=== PATIENT | female | born 1960 | race Caucasian/White ===

== ENCOUNTER 2020-05-14 15:38 | Emergency (ER) | payer BC ==
[~2020-05-14] VITALS: Ht 152 cm; Wt 96.0 kg
[2020-05-14 16:04] LABS: BASOPHILS # (AUTO) 0.1 10^3/uL (0.0-0.1); BASOPHILS % (AUTO) 0 % (0-10); EOSINOPHILS # (AUTO) 0.2 10^3/uL (0.0-0.3); EOSINOPHILS % (AUTO) 1 % (0-10); HEMATOCRIT 43 % (35-52); HEMOGLOBIN 13.9 G/DL (11.5-16.0); LYMPHOCYTES # (AUTO) 2.1 X 10^3 (1.0-4.0); LYMPHOCYTES % (AUTO) 11 % (12-44); MEAN CORPUSCULAR HEMOGLOBIN 26 PG (25-34); MEAN CORPUSCULAR HGB CONC 32 G/DL (32-36); MEAN CORPUSCULAR VOLUME 82 FL (80-99); MONOCYTES # (AUTO) 1.4 X 10^3 (0.0-1.0); MONOCYTES % (AUTO) 7 % (0-12); NEUTROPHILS # (AUTO) 15.3 X 10^3 (1.8-7.8); NEUTROPHILS % (AUTO) 80 % (42-75); PLATELET COUNT 198 10^3/uL (130-400)
[2020-05-14] MEDS ORDERED: NS IV 1000 ML 1,000 ML IV STA (16:16)
--- NOTE | 2020-05-14 16:16 | ED GI ---
General Chief Complaint: Abdominal/GI Problems Stated Complaint: DIARRHEA,BLOODY STOOLS,NAUSEA Nursing Triage Note: BLOOD IN STOOL. PT REPORTS DIARRHEA ON FRIDAY, BLOODY STOOLS FRIDAY AND MIXED BLOOD AND STOOL TODAY. PT REPORTS LOWER ABDOMINAL PAIN. PT IS ON PLAVIX. Sepsis Screen: No Definite Risk Source of Information: Patient History of Present Illness Date Seen by Provider: May 14, 2020 Time Seen by Provider: 15:40 Initial Comments 59-year-old female presenting with complaints of bloody diarrhea stools since Friday. She has had left-sided and lower abdominal pain as well. She denies any fever or chills. She has had some nausea but no vomiting. She denies any pain with urination. She does take Plavix due to having 5 stents in her heart. She had her last stent placed almost a year ago. She denies having any symptoms like this before. She states that she had a colonoscopy last April and was told that everything was clear. She denies any history of diverticulosis or div erticulitis. Severity/Quality: Mild, Aching, Cramping Location: RLQ, LLQ, Flank (left flank) Activities at Onset: None Associated Symptoms: No Back Pain, No Chest Pain, No Diaphoresis, No Fever/Chills; Fatigue; No Headache, No Heartburn; Nausea/Vomiting (nausea but no vomiting); No Rash, No Shortness of Air, No Swelling/Mass in Abdomen, No Syncope, No Weakness Allergies and Home Medications Allergies Coded Allergies: No Known Drug Allergies (Unverified , 05/14/20) Home Medications Azithromycin 500 Mg Tablet, 500 MG PO DAILY Prescribed by: TERRELL IBARRA on 05/14/20 4449 Patient Home Medication List Home Medication List Reviewed: Yes Review of Systems Review of Systems Constitutional: No chills, No fever EENTM: No Symptoms Reported Respiratory: No Symptoms Reported Cardiovascular: No Symptoms Reported Gastrointestinal: See HPI Genitourinary: No Symptoms Reported Musculoskeletal: no symptoms reported Skin: no symptoms reported Psychiatric/Neurological: No Symptoms Reported Endocrine: No Symptoms Reported Hematologic/Lymphatic: Easy Bleeding (taking plavix), Easy Bruising (taking plavix) Past Jlsrkjm-Ougkkk-Eczyrx Hx Past Med/Social Hx: Reviewed Nursing Past Med/Soc Hx Patient Social History Alcohol Use: Denies Use Smoking Status: Never a Smoker Recent Infectious Disease Expo: No Recent Hopitalizations: No Seasonal Allergies Seasonal Allergies: No Past Medical History Surgeries: Yes (HIATAL HERNIA REPAIR) Coronary Stent Respiratory: No Cardiac: Yes Coronary Artery Disease, High Cholesterol, Hypertension Neurological: No Genitourinary: No Gastrointestinal: Yes (GASTROPARESIS) Hiatal Hernia Musculoskeletal: Yes Arthritis Endocrine: Yes Diabetes, Non-Insulin dep HEENT: No Cancer: No Psychosocial: Yes Sleep Difficulties, Anxiety, Depression Integumentary: No Blood Disorders: No Physical Exam Vital Signs Vital Signs - First Documented 05/14/20 16:07 Temp 36.9 Pulse 103 Resp 20 B/P (MAP) 134/77 (96) Pulse Ox 97 O2 Delivery Room Air Capillary Refill : Less Than 3 Seconds Height/Weight/BMI Height: '" Weight: lbs. oz. kg; 41.00 BMI Method: General Appearance: WD/WN, no apparent distress HEENT: PERRL/EOMI Neck: non-tender, full range of motion Respiratory: chest non-tender, lungs clear, normal breath sounds, no respiratory distress, no accessory muscle use Cardiovascular: normal peripheral pulses, tachycardia Gastrointestinal: soft, no pulsatile mass, abnormal bowel sounds (hypoactive), tenderness (tender to palpation along left flank, LLQ, RLQ) Rectal: heme positive stool; No hemorrhoids, No mass Extremities: normal range of motion, normal capillary refill Neurologic/Psychiatric: alert, oriented x 3 Skin: normal color, warm/dry Images 1 - tender to palpation along left side of abdomen 2 - tender to palpation along lower abdomen Progress/Results/Core Measures Results/Orders Lab Results Laboratory Tests Test 05/14/20 15:53 05/14/20 16:30 Range/Units White Blood Count 19.0 H 4.3-11.0 10^3/uL Red Blood Count 5.29 4.35-5.85 10^6/uL Hemoglobin 13.9 11.5-16.0 G/DL Hematocrit 43 35-52 % Mean Corpuscular Volume 82 80-99 FL Mean Corpuscular Hemoglobin 26 25-34 PG Mean Corpuscular Hemoglobin Concent 32 32-36 G/DL Red Cell Distribution Width 14.8 H 10.0-14.5 % Platelet Count 198 130-400 10^3/uL Mean Platelet Volume 11.0 H 7.4-10.4 FL Immature Granulocyte % (Auto) 1 % Neutrophils (%) (Auto) 80 H 42-75 % Lymphocytes (%) (Auto) 11 L 12-44 % Monocytes (%) (Auto) 7 0-12 % Eosinophils (%) (Auto) 1 0-10 % Basophils (%) (Auto) 0 0-10 % Neutrophils # (Auto) 15.3 H 1.8-7.8 X 10^3 Lymphocytes # (Auto) 2.1 1.0-4.0 X 10^3 Monocytes # (Auto) 1.4 H 0.0-1.0 X 10^3 Eosinophils # (Auto) 0.2 0.0-0.3 10^3/uL Basophils # (Auto) 0.1 0.0-0.1 10^3/uL Immature Granulocyte # (Auto) 0.1 0.0-0.1 10^3/uL Neutrophils % (Manual) 83 % Lymphocytes % (Manual) 12 % Monocytes % (Manual) 3 % Eosinophils % (Manual) 1 % Band Neutrophils 1 % Toxic Granulation 4+ Prothrombin Time 12.9 12.2-14.7 SEC INR Comment 1.0 0.8-1.4 Activated Partial Thromboplast Time < 20 L 24-35 SEC Sodium Level 136 135-145 MMOL/L Potassium Level 4.5 3.6-5.0 MMOL/L Chloride Level 98 98-107 MMOL/L Carbon Dioxide Level 20 L 21-32 MMOL/L Anion Gap 18 H 5-14 MMOL/L Blood Urea Nitrogen 14 7-18 MG/DL Creatinine 0.77 0.60-1.30 MG/DL Estimat Glomerular Filtration Rate > 60 BUN/Creatinine Ratio 18 Glucose Level 147 H 70-105 MG/DL Calcium Level 8.9 8.5-10.1 MG/DL Corrected Calcium 8.6 8.5-10.1 MG/DL Total Bilirubin 0.5 0.1-1.0 MG/DL Aspartate Amino Transf (AST/SGOT) 13 5-34 U/L Alanine Aminotransferase (ALT/SGPT) 17 0-55 U/L Alkaline Phosphatase 83 40-136 U/L Total Protein 7.5 6.4-8.2 GM/DL Albumin 4.4 3.2-4.5 GM/DL Lipase 14 8-78 U/L Urine Color YELLOW Urine Clarity SLIGHLTLY CLOUDY Urine pH 6.0 5-9 Urine Specific [place] >=1.030 1.016-1.022 Urine Protein NEGATIVE NEGATIVE Urine Glucose (UA) 2+ H NEGATIVE Urine Ketones 3+ H NEGATIVE Urine Nitrite NEGATIVE NEGATIVE Urine Bilirubin 1+ H NEGATIVE Urine Urobilinogen 0.2 < = 1.0 MG/DL Urine Leukocyte Esterase NEGATIVE NEGATIVE Urine RBC (Auto) TRACE-I NEGATIVE Urine RBC 5-10 H /HPF Urine WBC 5-10 H /HPF Urine Squamous Epithelial Cells 10-25 H /HPF Urine Crystals NONE /LPF Urine Bacteria FEW H /HPF Urine Casts NONE /LPF Urine Mucus MODERATE H /LPF Urine Yeast FEW H /HPF Urine Culture Indicated YES My Orders Orders - TERRELL IBARRA MD Comprehensive Metabolic Panel (05/14/20 15:54) Lipase (05/14/20 15:54) Ua Culture If Indicated (05/14/20 15:54) Ed Iv/Invasive Line Start (05/14/20 15:54) Cbc With Automated Diff (05/14/20 15:54) Ct Abdomen/Pelvis W (05/14/20 15:54) Protime With Inr (05/14/20 15:54) Partial Thromboplastin Time (05/14/20 15:54) Manual Differential (05/14/20 15:53) Ns Iv 1000 Ml (Sodium Chloride 0.9%) (05/14/20 16:16) Fecal Occult Bedside (05/14/20 16:16) Iohexol Injection (Omnipaque 350 Mg/Ml 1 (05/14/20 16:30) Received Contrast (Hold Metformin- Contr (05/14/20 16:30) Sodium Chloride Flush (Catheter Flush Sy (05/14/20 16:30) Ns (Ivpb) (Sodium Chloride 0.9% Ivpb Bag (05/14/20 16:30) Urine Culture (05/14/20 16:30) Rx-Ondansetron Po (Rx-Zofran Po) (05/14/20 18:00) Azithromycin Tablet (Zithromax Tablet) (05/14/20 17:52) Medications Given in ED Current Medications Medications Dose Ordered Sig/Yohana Route Start Time Stop Time Status Last Admin Dose Admin Iohexol 100 ml ONCE ONCE IV 05/14/20 16:30 05/14/20 16:31 DC 05/14/20 16:51 100 ML Sodium Chloride 10 ml NEEDED PRN IV 05/14/20 16:30 05/14/20 18:02 DC 05/14/20 16:51 10 ML Sodium Chloride 100 ml ONCE ONCE IV 05/14/20 16:30 05/14/20 16:31 DC 05/14/20 16:51 100 ML Vital Signs/I&O 05/14/20 05/14/20 16:07 18:00 Temp 36.9 36.9 Pulse 103 88 Resp 20 16 B/P (MAP) 134/77 (96) 128/82 Pulse Ox 97 98 O2 Delivery Room Air Room Air Blood Pressure Mean: 96 Progress Progress Note #1: Progress Note obtain basic labs, CT scan of abdomen/pelvis with IV contrast to evaluate for colitis, diverticulitis, colon mass, pelvic mass. Give IVF for hydration. Pt declines pain or nausea medicine. Progress Note #2: Progress Note labs show elevated WBC count, chemistry stable without acute significant abnormality. UA shows ketones and glucose with elevated specific gravity for dehydration. CT scan shows colitis without abscess or fluid collection in the abdomen/pelvis. Counseled pt on results and from review of online medical reference [employer] will treat pt with Azithromycin here and 3 day course as outpt for possible bacterial source. Counseled to hold Plavix for next 5 to 7 days and check with clinic. May need repeat Colonoscopy although she reports last one was a year ago. Send with 4 Zofran with a take home pack from here. Counseled on follow up and return precautions. Diagnostic Imaging Diagonstic Imaging: CT Plain Films/CT/US/NM/MRI: abdomen, pelvis Comments NAME: LOIDA THOMPSON [facility] REC#: [id number] PT STATUS: REG ER : 1960 PHYSICIAN: TERRELL IBARRA MD ADMIT DATE: 05/14/20/ER FS Draft Date of Exam:05/14/20 CT ABDOMEN/PELVIS W INDICATION: Diarrhea with bloody stools and low abdominal pain x 2 days. Prior history of cholecystectomy and hiatal hernia repair. Appendectomy. EXAMINATION: CT abdomen and pelvis with contrast, 05/14/2020. All CT scans use one or more of the following dose optimizing techniques: automated exposure control, MA and/or KvP adjustment based on patient size and exam type or iterative reconstruction. FINDINGS: The lung bases are clear. There is diffuse fatty infiltration throughout the liver. There are changes of cholecystectomy. The spleen and pancreas are unremarkable. Adrenal glands unremarkable. Kidneys unremarkable. There is diffuse fat stranding along the entire course of the descending colon also involving the sigmoid with diffuse overall wall thickening also present. Findings most consistent with colitis. No free air or significant free fluid appreciated. The osseous structures appear intact. IMPRESSION: Findings of diffuse colitis throughout the left colon. Otherwise incidental findings as above. Dictated on workstation # [id number] Dict: 05/14/20 165 Trans: 05/14/201707 E [id number] Interpreted by: CINDI DIEGO MD Electronically signed by: Departure Impression Primary Impression: Colitis Additional Impressions: Bloody diarrhea Dehydration Disposition: HOME, SELF-CARE Condition: Stable Departure-Patient Inst. Decision time for Depature: 17:53 Referrals: [facility] (PCP) Primary Care Physician BOBO TATE APRN (Family) Primary Care Physician Patient Instructions: Bloody Stools, Adult ED, Dehydration, Adult ED, Colitis (DC) Add. Discharge Instructions: Stay well hydrated and drink plenty of water. Hold your Plavix for the next 5-7 days to let your bloody stools clear up. Take the antibiotics over the next 3 days to treat for colitis. Use the nausea medicine if needed for helping you stay well hydrated Check with clinic or return if having worsening symptoms such as fever over 101 F, worsening pain, increasing blood in your stools All discharge instructions reviewed with patient and/or family. Voiced understanding. Scripts Azithromycin (Azithromycin) 500 Mg Tablet 500 MG PO DAILY for colitis for 3 Days, #3 TAB 0 Refills Prov: TERRELL IBARRA MD 05/14/20 TERRELL IBARRA MD May 14, 2020 16:16
[2020-05-14 16:19] LABS: ALANINE AMINOTRANSFERASE 17 U/L (0-55); ALBUMIN 4.4 GM/DL (3.2-4.5); ALKALINE PHOSPHATASE 83 U/L (40-136); BILIRUBIN,TOTAL 0.5 MG/DL (0.1-1.0); BUN/CREATININE RATIO 18; CALCIUM 8.9 MG/DL (8.5-10.1); CARBON DIOXIDE 20 MMOL/L (21-32); CHLORIDE 98 MMOL/L (98-107); CREATININE SERUM 0.77 MG/DL (0.60-1.30); GFR ESTIMATED > 60; GLUCOSE 147 MG/DL (70-105); LIPASE 14 U/L (8-78); POTASSIUM 4.5 MMOL/L (3.6-5.0); SODIUM 136 MMOL/L (135-145); TOTAL PROTEIN 7.5 GM/DL (6.4-8.2)
[2020-05-14] MEDS ORDERED: IOHEXOL 350 MG/ML 100 ML (OMNIPAQUE 350) VIAL IV ONE (16:30)
[2020-05-14] MEDS ORDERED: CATHETER FLUSH 10 ML SYR IV PRN (16:30)
[2020-05-14] MEDS ORDERED: NS 100 ML (IVPB) BAG IV ONE (16:30)
[2020-05-14] MEDS ORDERED: HOLD METFORMIN - RECEIVED CONTRAST 20 ML VIAL IV SCH (16:30)
[2020-05-14 16:48] LABS: PROTHROMBIN TIME PATIENT 12.9 SEC (12.2-14.7)
[2020-05-14 16:49] LABS: PARTIAL THROMBOPLASTIN TIME < 20 SEC (24-35)
[2020-05-14 16:50] LABS: CLARITY,URINE SLIGHLTLY CLOUDY; COLOR,URINE YELLOW; GLUCOSE, URINE (UA) 2+ (NEGATIVE); PROTEIN,URINE NEGATIVE (NEGATIVE)
[2020-05-14 16:51] LABS: BACTERIA,URINE FEW /HPF; BILIRUBIN,URINE 1+ (NEGATIVE); KETONES,URINE 3+ (NEGATIVE); LEUKOCYTE ESTERASE ,URINE NEGATIVE (NEGATIVE); NITRITE,URINE NEGATIVE (NEGATIVE); YEAST,URINE FEW /HPF
--- NOTE | 2020-05-14 17:08 | Diagnostic Imaging Report ---
INDICATION: Diarrhea with bloody stools and low abdominal pain x 2 days. Prior history of cholecystectomy and hiatal hernia repair. Appendectomy. EXAMINATION: CT abdomen and pelvis with contrast, 05/14/2020. All CT scans use one or more of the following dose optimizing techniques: automated exposure control, MA and/or KvP adjustment based on patient size and exam type or iterative reconstruction. FINDINGS: The lung bases are clear. There is diffuse fatty infiltration throughout the liver. There are changes of cholecystectomy. The spleen and pancreas are unremarkable. Adrenal glands unremarkable. Kidneys unremarkable. There is diffuse fat stranding along the entire course of the descending colon also involving the sigmoid with diffuse overall wall thickening also present. Findings most consistent with colitis. No free air or significant free fluid appreciated. The osseous structures appear intact. IMPRESSION: Findings of diffuse colitis throughout the left colon. Otherwise incidental findings as above. Dictated by: Dictated on workstation # [id number]
[2020-05-14 17:16] LABS: BAND NEUTROPHILS 1 %; EOSINOPHILS % (MANUAL) 1 %; LYMPHOCYTES % (MANUAL) 12 %; MONOCYTES % (MANUAL) 3 %; NEUTROPHILS % (MANUAL) 83 %; TOXIC GRANULATION/VACUOLAZATIO 4+
[2020-05-14] MEDS ORDERED: AZITHROMYCIN 250 MG TAB (ZITHROMAX) PO STA (17:52)
[2020-05-14] MEDS ORDERED: AZIT500T9 PO (17:56)
[2020-05-14 18:00] VITALS: BP 128/82
[2020-05-14] MEDS ORDERED: RX-ONDANSETRON 4 MG ODT (ZOFRAN) PPK #4 PO PRN (18:00)
== END 2020-05-14 18:01 | disposition home or self-care (01) ==
LOC: EDUNIT# 15:38 → ER FS 15:42
DX: K52.9 Noninfective gastroenteritis and colitis, unspecified (principal); E86.0 Dehydration; I10 Essential (primary) hypertension; E11.9 Type 2 diabetes mellitus without complications; Z95.5 Presence of coronary angioplasty implant and graft
CPT/HCPCS: 36415; 74177; 80053; 81000; 82274; 83690; 85007; 85027; 85610; 85730; 87088

== ENCOUNTER → 2020-05-16 | Outpatient (CLI) | payer BC ==
[~2020-05-16] MED LIST: AZIT500T9 PO
--- NOTE | 2020-05-16 10:01 | Diagnostic Imaging Report ---
Indication: Left foot pain AP, oblique, and lateral views left foot are obtained No fracture or acute bony abnormality seen. There is prominent plantar and posterior calcaneal spurring. There is mild diffuse degenerative change throughout the tarsal bones. IMPRESSION: Chronic findings with no acute abnormality left foot. Dictated by: Dictated on workstation # [id number]
--- NOTE | 2020-05-16 10:01 | Diagnostic Imaging Report ---
Indication: Left knee pain AP, oblique, and lateral views left knee are obtained. No fracture or acute bony abnormality seen. Joint spaces are unremarkable. There is no overt joint effusion. IMPRESSION: Negative left knee. Dictated by: Dictated on workstation # [id number]
== END ==
LOC: RAD FS 08:57
PROVIDERS: ATTEND Nurse Practitioner
DX: M25.562 Pain in left knee (principal); M79.672 Pain in left foot
CPT/HCPCS: 73562; 73630

== ENCOUNTER 2020-08-02 12:25 | Emergency (ER) | payer BC, OTHER ==
[~2020-08-02] VITALS: Ht 152.4 cm; Wt 95.3 kg
[2020-08-02 13:10] LABS: EOSINOPHILS % (AUTO) 1 % (0-10); HEMATOCRIT 45 % (35-52); HEMOGLOBIN 14.4 G/DL (11.5-16.0); LYMPHOCYTES % (AUTO) 19 % (12-44); MEAN CORPUSCULAR HEMOGLOBIN 27 PG (25-34); MEAN CORPUSCULAR HGB CONC 32 G/DL (32-36); MEAN CORPUSCULAR VOLUME 82 FL (80-99); MEAN PLATELET VOLUME 10.3 FL (7.4-10.4); MONOCYTES % (AUTO) 7 % (0-12); NEUTROPHILS % (AUTO) 73 % (42-75); PLATELET COUNT 149 10^3/uL (130-400); WHITE BLOOD COUNT 9.4 10^3/uL (4.3-11.0)
[2020-08-02 13:11] LABS: BASOPHILS % (AUTO) 0 % (0-10); EOSINOPHILS # (AUTO) 0.1 10^3/uL (0.0-0.3); LYMPHOCYTES # (AUTO) 1.7 X 10^3 (1.0-4.0); MONOCYTES # (AUTO) 0.6 X 10^3 (0.0-1.0); NEUTROPHILS # (AUTO) 6.8 X 10^3 (1.8-7.8)
--- NOTE | 2020-08-02 13:13 | Diagnostic Imaging Report ---
INDICATION: Chest pain. Portable chest at 12:57 p.m. Heart size and pulmonary vascularity are normal. Lungs are clear. There are no effusions or pneumothoraces. IMPRESSION: Negative chest. Dictated by: Dictated on workstation # [id number]
[2020-08-02] MEDS ORDERED: ACETAMINOPHEN 500 MG TAB (TYLENOL) PO STA (13:20)
[2020-08-02] MEDS ORDERED: FAMOTIDINE 20MG/2ML IV (PEPCID) IV STA (13:20)
[2020-08-02 13:23] LABS: ALANINE AMINOTRANSFERASE 34 U/L (0-55); ALBUMIN 4.4 GM/DL (3.2-4.5); ALKALINE PHOSPHATASE 95 U/L (40-136); BILIRUBIN,TOTAL 0.3 MG/DL (0.1-1.0); BUN/CREATININE RATIO 29; CALCIUM 8.6 MG/DL (8.5-10.1); CARBON DIOXIDE 15 MMOL/L (21-32); CHLORIDE 98 MMOL/L (98-107); CREATININE SERUM 0.62 MG/DL (0.60-1.30); GFR ESTIMATED > 60; GLUCOSE 176 MG/DL (70-105); POTASSIUM 3.9 MMOL/L (3.6-5.0); SODIUM 134 MMOL/L (135-145); TOTAL PROTEIN 7.2 GM/DL (6.4-8.2)
[2020-08-02] MEDS ORDERED: ONDANSETRON 4 MG/2 ML (SDV) Z0FRAN IVP ONE (13:30)
[2020-08-02] MEDS ORDERED: NS IV 1000 ML 1,000 ML IV ONE (13:30)
[2020-08-02 13:44] LABS: PROTHROMBIN TIME PATIENT 13.3 SEC (12.2-14.7)
--- NOTE | 2020-08-02 13:48 | ED Chest Pain ---
General Chief Complaint: Chest Pain Stated Complaint: NAUSEA; COUGH; CHEST PAIN Nursing Triage Note: PT ARRIVED BY PRIVATE VEHICLE FROM WALK IN [facility] ([facility]) WITH CHIEF COMPLAIUTN OF NAUSEA FOR 4 DAYS, COUGH, CHEST PAIN AND BURNING AFTER URINATION. [facility] DID RAPID COVID AND FLU AND THEY WERE NEGATIVE. THEY DID A UA AND IT WAS NORMAL. PT STARTED TO HAVE NAUSEA 4 DAYS AGO, BUT HAS NOT VOMITED. SHE STATED ONE DAY SHE HAD DRY HEAVES. PT HAS HAD A COUGH AND WHEN SHE COUGHS SHE HAS GENERALIZED CHEST PAIN THAT IS CRUSHING. PT STATES SHE HAS EPIGASTRIC PAIN WITH PAIN OF 6. PT HAS HISTORY OF 5 STENTS, HYPERTENSION, HYPERLIPIDEMIA, DMII, HYPOTHYROIDISM, GASTROPARESIS, AND OVERACTIVE BLADDER. PT DENIES SMOKING, ALOCHOL OR DRUG USE. PT DENIES ALLERGIES TO MEDICATIONS. REPORT WAS GIVEN TO PROVIDER. Nursing Sepsis Screen: No Definite Risk Source: patient Exam Limitations: no limitations History of Present Illness Date Seen by Provider: August 02, 2020 Time Seen by Provider: 13:00 Initial Comments Here with report of low abdominal chest discomfort associated with cough and nausea with dry heaves. She has had this for the last 4 days. She has had quite a bit of burning when trying to eat anything. She states that she has been trying to force fluids and feels like she is at least partially hydrated but admits that she may be dehydrated. She admits that her heart rates a little high. Was seen at [facility] today and had testing done including Covid and influenza which were negative. UA was also performed and that was negative. She was sent here due to concerns on evaluation regarding the chest pain and they apparently did an EKG that read abnormal on the machine although there was no further clarification. Did have chills 3 days ago but none since and denies fever currently. Reports chest pain is essentially only associated with cough and she has the pain with that and then it goes away. Timing/Duration: intermittent, 4-5 days Severity/Quality: mild, moderate, aching, burning Location: central Radiation: no radiation Prior CP/Workup: cardiac cath Modifying Factors: worse with coughing, worse with eating ASA po CLIENT ONBOARDING ANALYST: Yes (Takes 81 mg daily) NTG SL CLIENT ONBOARDING ANALYST: No Allergies and Home Medications Allergies Coded Allergies: No Known Drug Allergies (Unverified , 05/14/20) Home Medications Azithromycin 500 Mg Tablet, 500 MG PO DAILY Prescribed by: TERRELL IBARRA on 05/14/20 1756 Patient Home Medication List Home Medication List Reviewed: Yes Review of Systems Review of Systems Constitutional: see HPI, chills; No fever EENTM: No Symptoms Reported Respiratory: Cough, Shortness of Air Cardiovascular: Chest Pain; Denies Edema Gastrointestinal: Denies Diarrhea; Nausea, Vomiting Genitourinary: No Symptoms Reported Musculoskeletal: no symptoms reported Skin: no symptoms reported All Other Systems Reviewed Negative Unless Noted: Yes Past Gcitwyj-Hriczl-Cjikmv Hx Past Med/Social Hx: Reviewed Nursing Past Med/Soc Hx Patient Social History Alcohol Use: Denies Use Smoking Status: Never a Smoker 2nd Hand Smoke Exposure: No Recent Infectious Disease Expo: No Recent Hopitalizations: No Seasonal Allergies Seasonal Allergies: No Past Medical History Surgeries: Yes (HIATAL HERNIA REPAIR) Coronary Stent Respiratory: No Cardiac: Yes Coronary Artery Disease, High Cholesterol, Hypertension Neurological: No Genitourinary: No Gastrointestinal: Yes (GASTROPARESIS) Hiatal Hernia Musculoskeletal: Yes Arthritis Endocrine: Yes Diabetes, Non-Insulin dep HEENT: No Cancer: No Psychosocial: Yes Sleep Difficulties, Anxiety, Depression Integumentary: No Blood Disorders: No Family Medical History Reviewed Nursing Family Hx Physical Exam Vital Signs Vital Signs - First Documented Capillary Refill : Less Than 3 Seconds Height, Weight, BMI Height: '" Weight: lbs. oz. kg; 41.00 BMI Method: General Appearance: No Apparent Distress, WD/WN, Obese HEENT: PERRL/EOMI, Pharynx Normal Neck: Non Tender, Supple Respiratory: Lungs Clear, Normal Breath Sounds Cardiovascular: No Murmur, Tachycardia Gastrointestinal: Non Tender, Soft Extremity: Normal Range of Motion, Non Tender Neurologic/Psychiatric: Alert, Oriented x3 Skin: Normal Color, Warm/Dry Progress/Results/Core Measures Results/Orders Lab Results Laboratory Tests Test 08/02/20 12:30 08/02/20 14:37 Range/Units White Blood Count 9.4 4.3-11.0 10^3/uL Red Blood Count 5.41 4.35-5.85 10^6/uL Hemoglobin 14.4 11.5-16.0 G/DL Hematocrit 45 35-52 % Mean Corpuscular Volume 82 80-99 FL Mean Corpuscular Hemoglobin 27 25-34 PG Mean Corpuscular Hemoglobin Concent 32 32-36 G/DL Red Cell Distribution Width 14.8 H 10.0-14.5 % Platelet Count 149 130-400 10^3/uL Mean Platelet Volume 10.3 7.4-10.4 FL Immature Granulocyte % (Auto) 1 % Neutrophils (%) (Auto) 73 42-75 % Lymphocytes (%) (Auto) 19 12-44 % Monocytes (%) (Auto) 7 0-12 % Eosinophils (%) (Auto) 1 0-10 % Basophils (%) (Auto) 0 0-10 % Neutrophils # (Auto) 6.8 1.8-7.8 X 10^3 Lymphocytes # (Auto) 1.7 1.0-4.0 X 10^3 Monocytes # (Auto) 0.6 0.0-1.0 X 10^3 Eosinophils # (Auto) 0.1 0.0-0.3 10^3/uL Basophils # (Auto) 0.0 0.0-0.1 10^3/uL Immature Granulocyte # (Auto) 0.1 0.0-0.1 10^3/uL Prothrombin Time 13.3 12.2-14.7 SEC INR Comment 1.0 0.8-1.4 Activated Partial Thromboplast Time 24 24-35 SEC D-Dimer < 0.27 0.00-0.49 UG/ML Sodium Level 134 L 135-145 MMOL/L Potassium Level 3.9 3.6-5.0 MMOL/L Chloride Level 98 98-107 MMOL/L Carbon Dioxide Level 15 L 21-32 MMOL/L Anion Gap 21 H 5-14 MMOL/L Blood Urea Nitrogen 18 7-18 MG/DL Creatinine 0.62 0.60-1.30 MG/DL Estimat Glomerular Filtration Rate > 60 BUN/Creatinine Ratio 29 Glucose Level 176 H 70-105 MG/DL Calcium Level 8.6 8.5-10.1 MG/DL Corrected Calcium 8.3 L 8.5-10.1 MG/DL Magnesium Level 2.0 1.6-2.4 MG/DL Total Bilirubin 0.3 0.1-1.0 MG/DL Aspartate Amino Transf (AST/SGOT) 20 5-34 U/L Alanine Aminotransferase (ALT/SGPT) 34 0-55 U/L Alkaline Phosphatase 95 40-136 U/L Myoglobin 43.0 10.0-92.0 NG/ML Troponin I < 0.30 < 0.30 <0.30 NG/ML C-Reactive Protein 7.36 H <0.50 MG/DL Total Protein 7.2 6.4-8.2 GM/DL Albumin 4.4 3.2-4.5 GM/DL My Orders Orders - AMANDA COSTELLO MD Cbc With Automated Diff (08/02/20 12:59) Magnesium (08/02/20 12:59) Chest 1 View Ap/Pa Only (08/02/20 12:59) Ekg Tracing (08/02/20 12:59) Comprehensive Metabolic Panel (08/02/20 12:59) Myoglobin Serum (08/02/20 12:59) Protime With Inr (08/02/20 12:59) Partial Thromboplastin Time (08/02/20 12:59) O2 (08/02/20 12:59) Monitor-Rhythm Ecg Trace Only (08/02/20 12:59) Lipid Panel (08/03/20 06:00) Ed Iv/Invasive Line Start (08/02/20 12:59) Fibrin Degradation Products (08/02/20 12:59) Troponin I Fs (08/02/20 12:59) Crp Fs (08/02/20 12:59) Acetaminophen Tablet (Tylenol Tablet) (08/02/20 13:20) Ed Iv/Invasive Line Start (08/02/20 13:20) Ns Iv 1000 Ml (Sodium Chloride 0.9%) (08/02/20 13:30) Ondansetron Injection (Zofran Injectio (08/02/20 13:30) Famotidine Injection (Pepcid Injection) (08/02/20 13:20) Ketorolac Injection (Toradol Injection) (08/02/20 14:34) Troponin I Fs (08/02/20 14:34) Medications Given in ED Current Medications Medications Dose Ordered Sig/Yohana Route Start Time Stop Time Status Last Admin Dose Admin Ondansetron HCl 4 mg ONCE ONCE IVP 08/02/20 13:30 08/02/20 13:31 DC 08/02/20 13:30 4 MG Sodium Chloride 1,000 ml @ 0 mls/hr Q0M ONCE IV 08/02/20 13:30 08/02/20 13:31 DC 08/02/20 13:30 1,000 MLS/HR Vital Signs/I&O 08/02/20 08/02/20 12:30 12:30 Temp 36.6 Pulse 100 Resp 19 B/P (MAP) 112/64 (80) Pulse Ox 96 O2 Delivery Room Air Room Air Blood Pressure Mean: 80 Progress Progress Note : Progress Note Seen and evaluated. Chest pain protocol initiated. Normal saline 1 L bolus, Zofran 4 mg IV and Pepcid 20 mg IV ordered. Tylenol 1 g p.o. for headache. Monitor patient. 1440: Overall doing better. Fluids are nearly complete now and heart rate down to 90. Patient does have significant cardiac history so we will repeat troponin now (2-hour wale) and give Toradol 30 mg IV for the muscular discomfort with cough. Patient agrees with plan. Monitor patient. 1514: Repeat troponin negative. Heart rate still about 90 but patient feels much better. She feels comfortable going home and I agree. Discharged home with return precautions. Patient verbalized understanding of instructions and agreement with plan. Initial ECG Impression Date: August 02, 2020 Initial ECG Impression Time: 12:26 Initial ECG Rate: 101 Comment Sinus rhythm with left axis deviation. No evidence of ST elevation [place]. Interpreted by me. Diagnostic Imaging Diagonstic Imaging: Xray Plain Films/CT/US/NM/MRI: chest Comments [facility]. [place], [place] NAME: LOIDA THOMPSON [facility] REC#: [id number] PT STATUS: REG ER : 1960 PHYSICIAN: AMANDA COSTELLO MD ADMIT DATE: 08/02/20/ER FS Draft Date of Exam:08/02/20 CHEST 1 VIEW AP/PA ONLY INDICATION: Chest pain. Portable chest at 12:57 p.m. Heart size and pulmonary vascularity are normal. Lungs are clear. There are no effusions or pneumothoraces. IMPRESSION: Negative chest. Dictated on workstation # [id number] Dict: 08/02/20 1312 Trans: 08/02/20 1313 [facility] [id number] Interpreted by: AMANDA CARTWRIGHT MD Electronically signed by: Departure Impression Primary Impression: Chest pain Qualified Codes: R07.9 - Chest pain, unspecified Additional Impression: Epigastric abdominal pain Disposition: 01 HOME, SELF-CARE Condition: Improved Departure-Patient Inst. Decision time for Depature: 15:15 Referrals: BOBO TATE APRN (PCP) Primary Care Physician [facility] (Family) Primary Care Physician Patient Instructions: Chest Pain (DC), Abdominal Pain, Adult ED, Nausea and Vomiting, Adult ED Add. Discharge Instructions: All discharge instructions reviewed with patient and/or family. Voiced understanding. Take medications as directed. You may take Pepcid or the generic famotidine 20 mg once or twice daily for the next 7 days and then as needed. Clear or light diet for the next 24 to 48 hours and then advance as tolerated. Drink plenty of fluids by taking small sips frequently. Follow-up with your doctor in a few days for recheck. Return for worse pain, fever, vomiting, weakness, breathing problems, chest pain or other concerns as needed. Scripts Ondansetron (Ondansetron Odt) 4 Mg Tab.rapdis 4 MG PO Q6H PRN for NAUSEA/VOMITING, #10 TAB 0 Refills Prov: AMANDA COSTELLO MD 08/02/20 AMANDA COSTELLO MD August 02, 2020 13:48
[2020-08-02] MEDS ORDERED: KETOROLAC 30 MG/ML VIAL IVP STA (14:34)
[2020-08-02] MEDS ORDERED: ONDA4TAB11 PO (15:17)
[2020-08-02 15:25] VITALS: BP 104/57
== END 2020-08-02 15:25 | disposition home or self-care (01) ==
LOC: EDUNIT# 12:25 → ER FS 12:26
DX: R07.9 Chest pain, unspecified (principal); R00.0 Tachycardia, unspecified; R05 Cough; I10 Essential (primary) hypertension; I25.10 Atherosclerotic heart disease of native coronary artery without angina pectoris; E11.43 Type 2 diabetes mellitus with diabetic autonomic (poly)neuropathy; K31.84 Gastroparesis; Z95.5 Presence of coronary angioplasty implant and graft
CPT/HCPCS: 36415; 71045; 80053; 83735; 83874; 84484; 85025; 85379; 85610; 85730; 86141; 93005; 93041

== ENCOUNTER → 2020-08-08 | Outpatient (CLI) | payer SELFPAY ==
[~2020-08-08] MED LIST changes: +ONDA4TAB11 PO
--- NOTE | 2020-08-08 11:41 | Diagnostic Imaging Report ---
INDICATION: CHRONIC LOW/LUMBAR BACK PAIN TECHNIQUE: AP, Lateral and Spot imaging of the lumbar spine CORRELATION STUDY: None FINDINGS: There is straightening of normal lumbar lordosis. Trace anterolisthesis of L4 on L5. Lumbar vertebral body heights are maintained. Slight loss of height superior T12 endplate. There is also overall loss of height T11 vertebral body. The intervertebral disc spaces overall are fairly well-maintained. Mild hypertrophic arthropathy L5-S1 and L4-L5 level. Mild vascular calcifications abdominal aorta. SI joints and bilateral hip joints appearing generally unremarkable. Moderate amount of overlying bowel gas and stool present. IMPRESSION: No radiographic evidence for acute bony abnormality of the lumbar spine. Mild loss of height and compression deformities of T11 and T12, likely chronic. Dictated by: Dictated on workstation # [id number]
== END ==
LOC: RAD FS 11:20
PROVIDERS: ATTEND Nurse Practitioner Family
DX: M51.34 Other intervertebral disc degeneration, thoracic region (principal); M48.54XA Collapsed vertebra, not elsewhere classified, thoracic region, initial encounter for fracture
CPT/HCPCS: 72100

== ENCOUNTER 2020-10-09 11:38 | Emergency (ER) | payer SELFPAY ==
[~2020-10-09] VITALS: Ht 152.4 cm; Wt 97.2 kg
[2020-10-09] MEDS: NS IV 1000 ML 1,000 ML IV SCH ×3 (11:59→15:40)
[2020-10-09] MEDS ORDERED: KETOROLAC 30 MG/ML VIAL IVP ONE (12:00)
[2020-10-09 12:04] LABS: HEMATOCRIT 44 % (35-52); HEMOGLOBIN 14.2 G/DL (11.5-16.0); MEAN CORPUSCULAR HEMOGLOBIN 26 PG (25-34); MEAN CORPUSCULAR HGB CONC 32 G/DL (32-36); MEAN CORPUSCULAR VOLUME 82 FL (80-99); PLATELET COUNT 320 10^3/uL (130-400); WHITE BLOOD COUNT 8.6 10^3/uL (4.3-11.0)
[2020-10-09 12:05] LABS: BASOPHILS % (AUTO) 0 % (0-10); EOSINOPHILS % (AUTO) 0 % (0-10); LYMPHOCYTES # (AUTO) 1.5 X 10^3 (1.0-4.0); LYMPHOCYTES % (AUTO) 18 % (12-44); MEAN PLATELET VOLUME 9.3 FL (7.4-10.4); MONOCYTES # (AUTO) 0.6 X 10^3 (0.0-1.0); MONOCYTES % (AUTO) 7 % (0-12); NEUTROPHILS # (AUTO) 6.3 X 10^3 (1.8-7.8); NEUTROPHILS % (AUTO) 74 % (42-75)
[2020-10-09 12:30] LABS: ALANINE AMINOTRANSFERASE 32 U/L (0-55); ALKALINE PHOSPHATASE 116 U/L (40-136); BILIRUBIN,TOTAL 0.3 MG/DL (0.1-1.0); BUN/CREATININE RATIO 25; CALCIUM 9.2 MG/DL (8.5-10.1); CHLORIDE 94 MMOL/L (98-107); CREATININE SERUM 0.81 MG/DL (0.60-1.30); GFR ESTIMATED 72; GLUCOSE 171 MG/DL (70-105); POTASSIUM 3.9 MMOL/L (3.6-5.0); SODIUM 127 MMOL/L (135-145)
[2020-10-09 12:32] LABS: TOTAL PROTEIN 8.1 GM/DL (6.4-8.2)
--- NOTE | 2020-10-09 12:34 | ED General ---
General Chief Complaint: General Problems/Pain Stated Complaint: SOB; DIFFICULTY WALKING/SPEAKING Source of Information: Patient Exam Limitations: No Limitations History of Present Illness Date Seen by Provider: Oct 09, 2020 Time Seen by Provider: 11:45 Initial Comments Patient is a 60-year-old female diagnosed 5 days ago with influenza A presents with nasal congestion rhinorrhea difficulty breathing at night. Patient states she has to breathe through her mouth and has difficulty sleeping at night for this reason. She reports cough, sore throat, denies shortness of breath, reports generalized weakness with fatigue and frequent falls. She states she has had very limited caloric intake since being diagnosed. She is compliant with her medications. No other symptoms or complaints. Timing/Duration: 5-6 Days Severity: Moderate Modifying Factors: improves with Other Associated Systoms: Other Allergies and Home Medications Allergies Coded Allergies: No Known Drug Allergies (Unverified , 05/14/20) Home Medications Azithromycin 500 Mg Tablet, 500 MG PO DAILY Prescribed by: TERRELL IBARRA on 05/14/20 1756 Ondansetron 4 Mg Tab.rapdis, 4 MG PO Q6H PRN for NAUSEA/VOMITING Prescribed by: AMANDA COSTELLO on 08/02/20 1517 Review of Systems Review of Systems Constitutional: see HPI EENTM: see HPI Respiratory: see HPI Cardiovascular: see HPI Gastrointestinal: see HPI Genitourinary: see HPI Musculoskeletal: see HPI Skin: see HPI Psychiatric/Neurological: See HPI Hematologic/Lymphatic: See HPI Immunological/Allergic: see HPI All Other Systems Reviewed Negative Unless Noted: Yes Past Niztger-Kpuhgu-Gskoim Hx Patient Social History Tobacco Use?: Yes Use of E-Cig and/or Vaping dev: No Substance use?: No Alcohol Use?: Yes Alcohol Frequency: Rarely Pt feels they are or have been: No Immunizations Up To Date Second COVID19 Vaccination Kal: June 30, 2020 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 oz. kg; 41.00 BMI Method: General Appearance: No Apparent Distress Eyes: Bilateral Eye Normal Inspection, Bilateral Eye PERRL, Bilateral Eye EOMI HEENT: PERRL/EOMI, Pharynx Normal, Other Neck: Full Range of Motion, Non Tender, Supple Respiratory: Chest Non Tender, Lungs Clear Cardiovascular: Regular Rate, Rhythm, No Edema Gastrointestinal: Non Tender, Soft Extremity: Non Tender, No Calf Tenderness Neurologic/Psychiatric: Alert, Oriented x3, delinquency counselor II-XII Norm as Tested Focused Exam Sepsis Stage: Ruled Out Lactate Level 10/09/20 11:46: Lactic Acid Level 1.22 Lactic Acid Level Laboratory Tests Test 10/09/20 11:46 Lactic Acid Level 1.22 MMOL/L (0.50-2.00) Progress/Results/Core Measures Suspected Sepsis SIRS Temperature: Pulse: Respiratory Rate: Laboratory Tests 10/09/20 11:46: White Blood Count 8.6 Blood Pressure / Mean: 10/09/20 11:46: Lactic Acid Level 1.22 Laboratory Tests 10/09/20 11:46: Platelet Count 320 Results/Orders Lab Results Laboratory Tests Test 10/09/20 11:46 10/09/20 12:01 Range/Units White Blood Count 8.6 4.3-11.0 10^3/uL Red Blood Count 5.36 4.35-5.85 10^6/uL Hemoglobin 14.2 11.5-16.0 G/DL Hematocrit 44 35-52 % Mean Corpuscular Volume 82 80-99 FL Mean Corpuscular Hemoglobin 26 25-34 PG Mean Corpuscular Hemoglobin Concent 32 32-36 G/DL Red Cell Distribution Width 15.3 H 10.0-14.5 % Platelet Count 320 130-400 10^3/uL Mean Platelet Volume 9.3 7.4-10.4 FL Immature Granulocyte % (Auto) 1 % Neutrophils (%) (Auto) 74 42-75 % Lymphocytes (%) (Auto) 18 12-44 % Monocytes (%) (Auto) 7 0-12 % Eosinophils (%) (Auto) 0 0-10 % Basophils (%) (Auto) 0 0-10 % Neutrophils # (Auto) 6.3 1.8-7.8 X 10^3 Lymphocytes # (Auto) 1.5 1.0-4.0 X 10^3 Monocytes # (Auto) 0.6 0.0-1.0 X 10^3 Eosinophils # (Auto) 0.0 0.0-0.3 10^3/uL Basophils # (Auto) 0.0 0.0-0.1 10^3/uL Immature Granulocyte # (Auto) 0.1 0.0-0.1 10^3/uL Lactic Acid Level 1.22 0.50-2.00 MMOL/L My Orders Orders - BRUNILDA MARTINEZ DO Cbc And Manual Diff (10/09/20 11:46) Comprehensive Metabolic Panel (10/09/20 11:46) Lactic Acid Analyzer (10/09/20 11:46) Urinalysis (10/09/20 11:46) Chest 1 View Ap/Pa Only (10/09/20 11:46) Ns Iv 1000 Ml (Sodium Chloride 0.9%) (10/09/20 12:00) Troponin I Fs (10/09/20 11:46) Probnp Fs (10/09/20 11:46) Ekg-Prn For Chest Pain Or Rhyt (10/09/20 11:49) Ketorolac Injection (Toradol Injection) (10/09/20 12:00) Accucheck Stat ONCE (10/09/20 11:50) Medications Given in ED Current Medications Medications Dose Ordered Sig/Yohana Route Start Time Stop Time Status Last Admin Dose Admin Ketorolac Tromethamine 30 mg ONCE ONCE IVP 10/09/20 12:00 10/09/20 12:01 DC 10/09/20 11:59 30 MG Vital Signs/I&O Capillary Refill : Departure Departure-Patient Inst. Referrals: BOBO TATE APRN (PCP) Primary Care Physician [facility] (Family) Primary Care Physician BRUNILDA MARTINEZ DO Oct 09, 2020 12:34
--- NOTE | 2020-10-09 12:40 | Diagnostic Imaging Report ---
INDICATION: Shortness of breath. TIME OF EXAM: 11:52 AM Correlation is made with prior chest from 08/02/2020. FINDINGS: The heart size is normal. Lungs are clear. No infiltrates are detected. No effusion or pneumothorax is identified. IMPRESSION: No acute cardiopulmonary process is detected. Dictated by: Dictated on workstation # [id number]
[2020-10-09 12:41] LABS: CLARITY,URINE CLEAR; COLOR,URINE YELLOW; PH,URINE 5.5 (5-9)
[2020-10-09 12:42] LABS: BACTERIA,URINE TRACE /HPF; BILIRUBIN,URINE 1+ (NEGATIVE); GLUCOSE, URINE (UA) 2+ (NEGATIVE); KETONES,URINE 3+ (NEGATIVE); LEUKOCYTE ESTERASE ,URINE NEGATIVE (NEGATIVE); NITRITE,URINE NEGATIVE (NEGATIVE); PROTEIN,URINE 1+ (NEGATIVE); SQUAMOUS EPITHELIAL CELL,UR RARE /HPF
[2020-10-09 12:46] LABS: CARBON DIOXIDE 7 MMOL/L (21-32)
[2020-10-09 12:54] LABS: ATYPICAL LYMPHOCYTES 1 %; BAND NEUTROPHILS 7 %; LYMPHOCYTES % (MANUAL) 17 %; MONOCYTES % (MANUAL) 6 %; NEUTROPHILS % (MANUAL) 69 %; RBC MORPH NORMAL
[2020-10-09 13:53] LABS: ABG PO2 117 MMHG (79-93)
[2020-10-09 13:55] LABS: ABG BASE EXCESS -24.5 MMOL/L (-2.5-2.5); ABG OXYGEN SATURATION 96 % (94-100); ABG PH 7.04 (7.37-7.43); ABG TCO2 4.8 MMOL/L (21.0-31.0)
[2020-10-09 13:56] LABS: ABG PCO2 16 MMHG (35-45); ALLENS TEST YES-POS; INSPIRED O2 ROOM AIR; VENTILATOR NO
[2020-10-09] MEDS ORDERED: DEXTROSE 50% 50 ML (IMS) SYR IV ONE (14:30)
[2020-10-09] MEDS ORDERED: inSUlin (REGULAR) HUMAN 1 UNIT/0.01 ML (CHARGE PER UNIT) SC ONE (14:30)
[2020-10-09 17:50] VITALS: BP 127/61
== END 2020-10-09 17:50 | disposition short-term general hospital (02) ==
LOC: EDUNIT# 11:38 → ER FS 11:39
DX: J02.9 Acute pharyngitis, unspecified (principal); R53.1 Weakness; R29.6 Repeated falls; G47.9 Sleep disorder, unspecified; E11.43 Type 2 diabetes mellitus with diabetic autonomic (poly)neuropathy; K31.84 Gastroparesis; I10 Essential (primary) hypertension
CPT/HCPCS: 36415; 51702; 71045; 80053; 81000; 82010; 82805; 82947; 83605; 83880; 84484; 85007; 85027; 93005; 96361; 96372; 96374; 96375; 99291

== ENCOUNTER → 2021-07-20 | Outpatient (CLI) | payer MEDICAID ==
--- NOTE | 2021-07-20 12:05 | Diagnostic Imaging Report ---
Indication: Bilateral hip pain. Time of Exam: 11:06 AM 2 views right hip were obtained. Femoral acetabular alignment is normal. Joint space is fairly well maintained. Femoral head and neck are intact. No fractures are seen. IMPRESSION: No acute bony abnormality is detected. Dictated by: Dictated on workstation # [id number]
--- NOTE | 2021-07-20 12:05 | Diagnostic Imaging Report ---
INDICATION: Left hip pain. TIME OF EXAM: 11:05 AM FINDINGS: Femoral acetabular alignment is normal. Joint space is well maintained. Femoral head and neck are intact. No fractures are identified. IMPRESSION: No acute bony abnormality is detected. Dictated by: Dictated on workstation # [id number]
== END ==
LOC: RAD FS 10:55
PROVIDERS: ATTEND Nurse Practitioner
DX: M25.551 Pain in right hip (principal); M25.552 Pain in left hip
CPT/HCPCS: 73502

== ENCOUNTER 2021-08-15 20:53 | Emergency (ER) | payer MEDICAID ==
[~2021-08-15] VITALS: Ht 152.4 cm; Wt 108.7 kg
[2021-08-15] MEDS ORDERED: ONDANSETRON 4 MG (ZOFRAN) ORAL DISSOLVE TAB PO STA (21:31)
--- NOTE | 2021-08-15 21:38 | ED General ---
General Chief Complaint: Bite-Animal/Human/Insect Stated Complaint: INSECT BITE,ALL OVER BODY RASH,BACK PAIN Nursing Triage Note: Pt reports two spider bites to lower back that she noticed this afternoon. Pt was seen at Urgent Care today and told to take Benadryl and monitor spot. Pt reports rash to bilateral arms, back, and right leg. Also reports fever of 102 at home and pt too (3) Extra Strength Tyelnol at 1930 Source of Information: Patient Exam Limitations: No Limitations History of Present Illness Date Seen by Provider: Aug 15, 2021 Time Seen by Provider: 21:00 Initial Comments Patient was bit yesterday evening with 2 brown recluse on her lower back. She was seen at urgent care today and instructed take Benadryl and ibuprofen. She reports malaise, tingling in arms, blotchy rash on posterior elbow, back and right leg tachycardia and fever of 102 at home. Patient took 2 extra strength Tylenol prior to ED arrival. She also reports nausea and has had decreased oral intake secondary to the same Timing/Duration: 2-3 Days Severity: Moderate Allergies and Home Medications Allergies Coded Allergies: No Known Drug Allergies (Unverified , 05/14/20) Patient Home Medication List Home Medication List Reviewed: Yes Unable to Obtain Active Prescriptions or Reported Meds Review of Systems Review of Systems Constitutional: see HPI EENTM: see HPI Respiratory: see HPI Cardiovascular: see HPI Genitourinary: see HPI : No Musculoskeletal: see HPI Skin: see HPI Psychiatric/Neurological: See HPI Hematologic/Lymphatic: See HPI Immunological/Allergic: see HPI All Other Systems Reviewed Negative Unless Noted: No Past Vkialla-Ybzwyk-Rrecga Hx Patient Social History Tobacco Use?: No Use of E-Cig and/or Vaping dev: No Substance use?: No Alcohol Use?: No Pt feels they are or have been: No Immunizations Up To Date Influenza Vaccine Up-to-Date: Yes; Up-to-Date Seasonal Allergies Seasonal Allergies: No Past Medical History Surgeries: Yes (HIATAL HERNIA REPAIR) Coronary Stent Respiratory: No Cardiac: Yes Coronary Artery Disease, High Cholesterol, Hypertension Neurological: No Genitourinary: No Gastrointestinal: Yes (GASTROPARESIS) Hiatal Hernia Musculoskeletal: Yes Arthritis Endocrine: Yes Diabetes, Non-Insulin dep HEENT: No Cancer: No Psychosocial: Yes Sleep Difficulties, Anxiety, Depression Integumentary: No Blood Disorders: No Physical Exam Vital Signs Vital Signs - First Documented 08/15/21 20:58 Temp 37.7 Pulse 98 Resp 17 B/P (MAP) 135/95 (108) Pulse Ox 96 O2 Delivery Room Air Capillary Refill : Less Than 3 Seconds Height, Weight, BMI Height: '" Weight: lbs. oz. kg; 46.00 BMI Method: General Appearance: No Apparent Distress, WD/WN, Anxious Eyes: Bilateral Eye Normal Inspection, Bilateral Eye PERRL, Bilateral Eye EOMI HEENT: PERRL/EOMI, Moist Mucous Membranes Neck: Normal Inspection Respiratory: Lungs Clear Cardiovascular: Regular Rate, Rhythm Back: Other (2 circular 3 cm erythematous indurated patches patches of indurated region with possible spider bites) Extremity: Other (Blood sugar also over extensor elbows, right leg and back. No cellulitis streaking or weeping) Neurologic/Psychiatric: Abnormal Gait Skin: Other Progress/Results/Core Measures Suspected Sepsis SIRS Temperature: Pulse: 98 Respiratory Rate: 17 Blood Pressure 135 /95 Mean: 108 Results/Orders My Orders Orders - BRUNILDA MARTINEZ DO Ondansetron Oral Dissolve Tab (Zofran (08/15/21 21:31) Prednisone Tablet (Deltasone Tablet) (08/15/21 21:45) Vital Signs/I&O 08/15/21 20:58 Temp 37.7 Pulse 98 Resp 17 B/P (MAP) 135/95 (108) Pulse Ox 96 O2 Delivery Room Air Capillary Refill : Less Than 3 Seconds Blood Pressure Mean: 108 Departure Communication (Admissions) Patient with systemic symptoms from spider envenomation. Patient was able to deal with spiders which were identified at home as brown recluse. Symptoms are most consistent with systemic inflammatory reaction without a current evidence of infection. Zofran and prednisone given. Recommendations are supportive care watchful waiting and PCP follow-up. Return cautions reviewed. Patient verbalizes understanding agreement with discharge instructions prior to departure. Impression Primary Impression: Spider bite wound Additional Impressions: Nausea & vomiting Envenomation Disposition: 01 HOME, SELF-CARE Condition: Stable Departure-Patient Inst. Decision time for Depature: 21:38 Referrals: BOBO TATE APRN (PCP) Primary Care Physician [facility] (Family) Primary Care Physician Patient Instructions: Spider Bites, Nausea and Vomiting, Adult (DC) Add. Discharge Instructions: You were evaluated in the emergency department for nausea, malaise fever and rash from spider bite. All discharge instructions reviewed with patient and/or family. Voiced understanding. Scripts Ondansetron (Ondansetron Odt) 4 Mg Tab.rapdis 4 MG PO Q6H, #10 TAB Prov: BRUNILDA MARTINEZ DO 08/15/21 BRUNILDA MARTINEZ DO Aug 15, 2021 21:38
[2021-08-15] MEDS ORDERED: ONDA4TAB11 PO (21:41)
[2021-08-15 21:45] VITALS: BP 135/95
[2021-08-15] MEDS ORDERED: predniSONE 20 MG TAB PO ONE (21:45)
== END 2021-08-15 21:45 | disposition home or self-care (01) ==
LOC: EDUNIT# 20:53 → ER FS 20:54
DX: T63.331A Toxic effect of venom of brown recluse spider, accidental (unintentional), initial encounter (principal); R11.2 Nausea with vomiting, unspecified
CPT/HCPCS: 99283

== ENCOUNTER 2021-08-19 10:15 | Emergency (ER) | payer MEDICAID ==
[~2021-08-19] VITALS: Ht 152.4 cm; Wt 109.4 kg
--- NOTE | 2021-08-19 10:19 | ED General ---
General Stated Complaint: RASH; SPIDER BITE History of Present Illness Date Seen by Provider: Aug 19, 2021 Time Seen by Provider: 10:19 Initial Comments 60-year-old female is here with complaints of a brown recluse bite 5 days ago. Patient has been to urgent care and was given Benadryl and prednisone. Patient has not been on any antibiotics for it. Patient was sent here from urgent care today because she has a diffuse rash all over her body. Patient's brown recluse bite x2, is on her mid to lower back area. Patient complains that her bite is starting to blister and ulcerate and has bluish discoloration around the bite groves. Denies shortness of breath, oral or throat swelling, nausea and vomiting, fever, abdominal pain, diarrhea. Allergies and Home Medications Allergies Coded Allergies: No Known Drug Allergies (Unverified , 05/14/20) Patient Home Medication List Home Medication List Reviewed: Yes Ondansetron (Ondansetron Odt) 4 Mg Tab.rapdis, 4 MG PO Q6H Prescribed by: BRUNILDA MARTINEZ on 08/15/212140 Review of Systems Review of Systems Constitutional: no symptoms reported EENTM: no symptoms reported Respiratory: no symptoms reported Cardiovascular: no symptoms reported Gastrointestinal: no symptoms reported Genitourinary: no symptoms reported Musculoskeletal: no symptoms reported Skin: lesions, rash Psychiatric/Neurological: No Symptoms Reported Hematologic/Lymphatic: No Symptoms Reported Immunological/Allergic: no symptoms reported Past Dtnyxvs-Vbuyoj-Lxfvvf Hx Seasonal Allergies Seasonal Allergies: No Past Medical History Surgeries: Yes (HIATAL HERNIA REPAIR) Coronary Stent Respiratory: No Cardiac: Yes Coronary Artery Disease, High Cholesterol, Hypertension Neurological: No Genitourinary: No Gastrointestinal: Yes (GASTROPARESIS) Hiatal Hernia Musculoskeletal: Yes Arthritis Endocrine: Yes Diabetes, Non-Insulin dep HEENT: No Cancer: No Psychosocial: Yes Sleep Difficulties, Anxiety, Depression Integumentary: No Blood Disorders: No Physical Exam Vital Signs Vital Signs - First Documented 08/19/21 10:23 Temp 36.7 Pulse 82 Resp 17 B/P (MAP) 134/98 (110) O2 Delivery Room Air Capillary Refill : Height, Weight, BMI Height: '" Weight: lbs. oz. kg; 46.00 BMI Method: General Appearance: No Apparent Distress HEENT: PERRL/EOMI Neck: Full Range of Motion Respiratory: Chest Non Tender, Lungs Clear, Normal Breath Sounds Cardiovascular: Regular Rate, Rhythm, No Edema Gastrointestinal: Normal Bowel Sounds, Non Tender, Soft Back: Other (left side mid to lower back shows 2 spider bites which are partially blistering and ulcerationg with echymosis surrounding the bite groves. No discharge from wounds) Neurologic/Psychiatric: Alert, Oriented x3, Normal Mood/Affect Skin: Rash (Maculopapular rash from head to toe, and is pruritic in nature) Progress/Results/Core Measures Suspected Sepsis SIRS Temperature: Pulse: Respiratory Rate: Laboratory Tests 08/19/21 10:39: White Blood Count 13.4H Blood Pressure / Mean: Laboratory Tests 08/19/21 10:39: Creatinine 0.75, Platelet Count 163, Total Bilirubin 0.9 Results/Orders Lab Results Laboratory Tests Test 08/19/21 10:39 Range/Units White Blood Count 13.4 H 4.3-11.0 10^3/uL Red Blood Count 5.00 3.80-5.11 10^6/uL Hemoglobin 13.7 11.5-16.0 g/dL Hematocrit 41 35-52 % Mean Corpuscular Volume 83 80-99 fL Mean Corpuscular Hemoglobin 27 25-34 pg Mean Corpuscular Hemoglobin Concent 33 32-36 g/dL Red Cell Distribution Width 16.6 H 10.0-14.5 % Platelet Count 163 130-400 10^3/uL Mean Platelet Volume 10.2 9.0-12.2 fL Immature Granulocyte % (Auto) 1 % Neutrophils (%) (Auto) 83 H 42-75 % Lymphocytes (%) (Auto) 9 L 12-44 % Monocytes (%) (Auto) 4 0-12 % Eosinophils (%) (Auto) 3 0-10 % Basophils (%) (Auto) 0 0-10 % Neutrophils # (Auto) 11.2 H 1.8-7.8 10^3/uL Lymphocytes # (Auto) 1.2 1.0-4.0 10^3/uL Monocytes # (Auto) 0.5 0.0-1.0 10^3/uL Eosinophils # (Auto) 0.4 H 0.0-0.3 10^3/uL Basophils # (Auto) 0.0 0.0-0.1 10^3/uL Immature Granulocyte # (Auto) 0.1 0.0-0.1 10^3/uL Sodium Level 134 L 135-145 MMOL/L Potassium Level 4.5 3.6-5.0 MMOL/L Chloride Level 98 98-107 MMOL/L Carbon Dioxide Level 25 21-32 MMOL/L Anion Gap 11 5-14 MMOL/L Blood Urea Nitrogen 15 7-18 MG/DL Creatinine 0.75 0.60-1.30 MG/DL Estimat Glomerular Filtration Rate 91 BUN/Creatinine Ratio 20 Glucose Level 119 H 70-105 MG/DL Calcium Level 8.6 8.5-10.1 MG/DL Corrected Calcium 8.8 8.5-10.1 MG/DL Total Bilirubin 0.9 0.1-1.0 MG/DL Aspartate Amino Transf (AST/SGOT) 167 H 5-34 U/L Alanine Aminotransferase (ALT/SGPT) 576 H 0-55 U/L Alkaline Phosphatase 210 H 40-136 U/L Total Creatine Kinase 38 29-168 U/L Total Protein 6.8 6.4-8.2 GM/DL Albumin 3.8 3.2-4.5 GM/DL Serum Alcohol < 10 <10 MG/DL My Orders Orders - YEIMI STANTON MD Cbc With Automated Diff (08/19/21 10:26) Comprehensive Metabolic Panel (08/19/21 10:26) Creatine Kinase (08/19/21 10:39) Alcohol (08/19/21 11:08) Ed Iv/Invasive Line Start (08/19/21 11:09) Ns Iv 1000 Ml (Sodium Chloride 0.9%) (08/19/21 11:15) Clindamycin 600 Mg/50 Ml Ivpb (Cleocin P (08/19/21 11:15) Dexamethasone Injection (Decadron Inje (08/19/21 11:17) Famotidine Injection (Pepcid Injection) (08/19/21 11:30) Medications Given in ED Current Medications Medications Dose Ordered Sig/Yohana Route Start Time Stop Time Status Last Admin Dose Admin Famotidine 20 mg ONCE ONCE IVP 08/19/21 11:30 08/19/21 11:31 DC 08/19/21 11:28 20 MG Vital Signs/I&O 08/19/21 10:23 Temp 36.7 Pulse 82 Resp 17 B/P (MAP) 134/98 (110) O2 Delivery Room Air Capillary Refill : Progress Note : Progress Note 1. BROWN RECLUSE BITE/ RASH - Labs -In ER IV fluids and clindamycin IV given along with DEXA IV -Prescriptions for prednisone, dose changed to 60 mg/day for the next 3 days, clindamycin prescription for the next 7 days, advised to continue Benadryl and Pepcid. Do not drive while taking Benadryl. -Follow-up with PCP -Prescription for EpiPen also given and instructions how to use it and when to use it. -Return to ER if symptoms worsen or shortness of breath occurs. -The patient was seen in the ED, and treated appropriately to presentation at a specific point in time. Patient is informed that there is a possibility that disease and illness can evolve and change in acuity rapidly or slowly after patient is discharged from the ER. Precautionary advice given to the patient for immediate return to ER if symptoms worsen or do not resolve, and to seek emergency care sooner rather than later. Pt also advised on the importance of PCP follow up and compliance with management and follow up plan with PCP and/or specialist, as this is part of the management plan. Pt verbally expressed understanding. Departure Impression Primary Impression: Brown recluse spider bite or sting Qualified Codes: T63.331A - Toxic effect of venom of brown recluse spider, accidental (unintentional), initial encounter Additional Impression: Diffuse papular rash Disposition: 01 HOME, SELF-CARE Condition: Stable Departure-Patient Inst. Referrals: BOBO TATE APRN (PCP) Primary Care Physician [facility] (Family) Primary Care Physician Patient Instructions: Spider Bites, Wound Care Add. Discharge Instructions: -Prescription change of prednisone to 60 mg daily for the next 3 days starting tomorrow -Pepcid 20 mg a day which can be purchased [id number]-uhkozbr for the next 3 days -Clindamycin 300mg Q6H for 7 days -Hydrocortisone cream over the rash and antibiotic ointment over the spider bites -Benadryl 25 mg twice a day. Advised not to drive while taking Benadryl. -EpiPen prescribed with verbal and written instructions on how to use it given to patient. Return to ER if symptoms worsen -Follow-up with PCP within the next 3 days. Scripts Epinephrine (Epipen 2-Yazan) 0.3 Mg/0.3 Ml Auto.injct 0.3 MG IJ PRN PRN for SHORTNESS OF BREATH for 30 Days, #1 ML Prov: YEIMI STANTON MD 08/19/21 Prednisone (Prednisone) 50 Mg Tab 60 MG PO DAILY for 3 Days, #3 TAB Prov: YEIMI STANTON MD 08/19/21 Clindamycin HCl (Clindamycin HCl) 300 Mg Capsule 300 MG PO Q6H for 7 Days, #28 CAP Prov: YEIMI STANTON MD 08/19/21 YEIMI STANTON MD Aug 19, 2021 10:19
[2021-08-19 10:42] LABS: BASOPHILS % (AUTO) 0 % (0-10); EOSINOPHILS # (AUTO) 0.4 10^3/uL (0.0-0.3); EOSINOPHILS % (AUTO) 3 % (0-10); HEMATOCRIT 41 % (35-52); HEMOGLOBIN 13.7 g/dL (11.5-16.0); LYMPHOCYTES # (AUTO) 1.2 10^3/uL (1.0-4.0); LYMPHOCYTES % (AUTO) 9 % (12-44); MEAN CORPUSCULAR HEMOGLOBIN 27 pg (25-34); MEAN CORPUSCULAR HGB CONC 33 g/dL (32-36); MEAN CORPUSCULAR VOLUME 83 fL (80-99); MEAN PLATELET VOLUME 10.2 fL (9.0-12.2); MONOCYTES # (AUTO) 0.5 10^3/uL (0.0-1.0); MONOCYTES % (AUTO) 4 % (0-12); NEUTROPHILS # (AUTO) 11.2 10^3/uL (1.8-7.8); NEUTROPHILS % (AUTO) 83 % (42-75); PLATELET COUNT 163 10^3/uL (130-400); WHITE BLOOD COUNT 13.4 10^3/uL (4.3-11.0)
[2021-08-19 11:04] LABS: CALCIUM 8.6 MG/DL (8.5-10.1); CREATININE SERUM 0.75 MG/DL (0.60-1.30); POTASSIUM 4.5 MMOL/L (3.6-5.0)
[2021-08-19 11:05] LABS: ALBUMIN 3.8 GM/DL (3.2-4.5); BILIRUBIN,TOTAL 0.9 MG/DL (0.1-1.0); TOTAL PROTEIN 6.8 GM/DL (6.4-8.2)
[2021-08-19] MEDS ORDERED: CLINDAMYCIN 600 MG/50 ML IVPB 50 ML IV STA (11:15)
[2021-08-19] MEDS ORDERED: NS IV 1000 ML 1,000 ML IV SCH (11:15)
[2021-08-19] MEDS ORDERED: FAMOTIDINE 20MG/2ML IV (PEPCID) IVP ONE (11:30)
[2021-08-19] MEDS ORDERED: CLIN-144 PO (13:49)
[2021-08-19] MEDS ORDERED: PRD50T PO (13:49)
[2021-08-19] MEDS ORDERED: EPIN0.3P3 IJ (13:49)
[2021-08-19 14:00] VITALS: BP 137/82
== END 2021-08-19 14:00 | disposition home or self-care (01) ==
LOC: EDUNIT# 10:15 → ER FS 10:17
DX: T63.331A Toxic effect of venom of brown recluse spider, accidental (unintentional), initial encounter (principal)
CPT/HCPCS: 36415; 80053; 80320; 82550; 85025